=== PATIENT | female | born 1990 | race Caucasian/White ===

== ENCOUNTER 2022-03-18 17:11 | Outpatient (CLI) | payer BC, SELFPAY ==
[2022-03-18 17:31] LABS: Basophils Percent Auto 0.2 % (0.2-1.2); Eosinophils Absolute Auto 0.1 K/mm3 (0-0.3); Eosinophils Percent Auto 0.6 % (0-4.4); Hematocrit 35.9 % (37.0-47.0); Hemoglobin 11.7 g/dL (12.0-15.0); Immature Granulocyte Absolute 0.02 K/mm3 (0.00-0.031); Immature Granulocyte Percent A 0.2 % (0-0.5); Lymphocytes Absolute Auto 2.67 K/mm3 (0.9-3.2); Lymphocytes Percent Auto 24.5 % (18.3-44.2); Mean Corpuscular HGB Conc 32.6 g/dl (32-36); Mean Corpuscular Hemoglobin 30.2 pg (26-34); Mean Corpuscular Volume 92.5 fl (80-100); Monocytes Absolute Auto 0.7 K/mm3 (0.1-0.6); Monocytes Percent Auto 6.1 % (2.6-8.5); Neutrophils Absolute Auto 7.5 K/mm3 (1.3-6.7); Neutrophils Percent Auto 68.4 % (45.5-73.1); Platelet Count Result 236 k/mm3 (150-375); Red Blood Count 3.88 M/mm3 (4.2-5.4); Red Cell Distribution Width 13.3 % (11.5-14.5); White Blood Count 10.9 K/mm3 (4.5-10.0)
[2022-03-18 18:23] LABS: Hepatitis B Surface Antigen Negative (Negative)
[2022-03-18 18:25] LABS: HIV 1/2 Ab P24 Ag Result Negative (Negative)
[2022-03-20 17:06] LABS: Rapid Plasma Reagin Non-Reactive (NonReactive)
[2022-03-22 15:52] LABS: CMV IgG Antibody <0.60 U/mL (<0.60)
[2022-03-26 11:33] LABS: CF Result NEGATIVE (NEGATIVE); Ethnicity NG
[2022-03-27 08:36] LABS: SMA 2.0 RISK VARIANT NOT DETECTED
[2022-04-10 12:54] LABS: SMA Results Received Yes
== END 2022-03-18 17:12 | disposition home or self-care (01) ==
PROVIDERS: PCP Obstetrics & Gynecology; Visit Provider Student in an Organized Health Care Education/Training Program
DX: Z34.90 Encounter for supervision of normal pregnancy, unspecified, unspecified trimester (principal); Z3A.00 Weeks of gestation of pregnancy not specified
CPT/HCPCS: 36415; 81220; 81329; 84702; 85025; 86592; 86644; 86703; 86747; 86762; 86787; 86850; 86900; 86901; 87086; 87340; G0432

== ENCOUNTER 2022-06-18 07:17 | Outpatient (CLI) | payer BC, SELFPAY ==
[2022-06-18 09:31] LABS: Basophils Percent Auto 0.2 % (0.2-1.2); Eosinophils Absolute Auto 0.1 K/mm3 (0-0.3); Eosinophils Percent Auto 0.7 % (0-4.4); Hematocrit 32.2 % (37.0-47.0); Hemoglobin 10.3 g/dL (12.0-15.0); Immature Granulocyte Absolute 0.08 K/mm3 (0.00-0.031); Immature Granulocyte Percent A 0.7 % (0-0.5); Lymphocytes Absolute Auto 1.99 K/mm3 (0.9-3.2); Lymphocytes Percent Auto 17.4 % (18.3-44.2); Mean Corpuscular Volume 93.9 fl (80-100); Mean Platelet Volume 9.7 fl (7.4-10.4); Monocytes Absolute Auto 0.6 K/mm3 (0.1-0.6); Neutrophils Absolute Auto 8.7 K/mm3 (1.3-6.7); Platelet Count Result 298 k/mm3 (150-375); Red Blood Count 3.43 M/mm3 (4.2-5.4); Red Cell Distribution Width 14.6 % (11.5-14.5); White Blood Count 11.5 K/mm3 (4.5-10.0)
[2022-06-18 09:43] LABS: Glucose 1 Hour PP 50gm Dose 172 mg/dL
[2022-06-18 10:23] LABS: HIV 1/2 Ab P24 Ag Result Negative (Negative)
== END 2022-06-18 07:18 | disposition home or self-care (01) ==
LOC: ANHLAB 07:19
PROVIDERS: PCP Obstetrics & Gynecology; Visit Provider Obstetrics & Gynecology
DX: Z34.90 Encounter for supervision of normal pregnancy, unspecified, unspecified trimester (principal)
CPT/HCPCS: 36415; 82947; 85025; 86703; G0432

== ENCOUNTER 2022-07-05 19:53 | Outpatient (CLI) | payer BC, SELFPAY ==
[2022-07-05 20:15] VITALS: BP 112/69; PULSE 102
[2022-07-05 20:29] LABS: Basophils Percent Auto 0.2 % (0.2-1.2); Eosinophils Absolute Auto 0.1 K/mm3 (0-0.3); Eosinophils Percent Auto 0.6 % (0-4.4); Hematocrit 31.7 % (37.0-47.0); Hemoglobin 10.5 g/dL (12.0-15.0); Immature Granulocyte Absolute 0.04 K/mm3 (0.00-0.031); Immature Granulocyte Percent A 0.4 % (0-0.5); Lymphocytes Absolute Auto 2.38 K/mm3 (0.9-3.2); Lymphocytes Percent Auto 23.5 % (18.3-44.2); Mean Corpuscular HGB Conc 33.1 g/dl (32-36); Mean Corpuscular Hemoglobin 30.8 pg (26-34); Mean Platelet Volume 9.7 fl (7.4-10.4); Monocytes Absolute Auto 0.7 K/mm3 (0.1-0.6); Monocytes Percent Auto 7.3 % (2.6-8.5); Neutrophils Absolute Auto 6.9 K/mm3 (1.3-6.7); Platelet Count Result 289 k/mm3 (150-375); Red Blood Count 3.41 M/mm3 (4.2-5.4); Red Cell Distribution Width 14.2 % (11.5-14.5); White Blood Count 10.1 K/mm3 (4.5-10.0)
[2022-07-05 20:30] VITALS: BP 102/63; PULSE 92
[2022-07-05 20:31] LABS: Appearance Urine Clear (Clear); Bilirubin Urine Negative (Negative); Blood Urine Negative (Negative); Color Urine Yellow (Yellow); Glucose Urine UA Negative (Negative); Ketones Urine 1+ mg/dL (Negative); Leukocyte Esterase Ur Negative LEU/UL (NEGATIVE); Nitrate Urine Negative (Negative); Protein Urine Negative (Negative); Urobilinogen Urine 0.2 mg/dL (<2.0)
[2022-07-05 20:34] LABS: Total Protein Urine Random 18 mg/dL; Ur Ttl Prot Creatinine Ratio 1.38 mg/mg (0-0.20)
[2022-07-05 20:36] LABS: Add Urine Microscopic? YES; Amorphous Sediment Urine Few; Bacteria Urine 2+ /hpf; Mucus Urine Rare /lpf; RBC Urine 0-2 /hpf (0-2); Squamous Epithelial Cell Urine Few /hpf (Few)
[2022-07-05 20:42] LABS: Alanine Aminotransferase 23 U/L (6-35); Albumin Level 3.6 g/dL (3.5-5.1); Alkaline Phosphatase 65 U/L (38-126); Anion Gap 3 mmol/L (8-16); Aspartate Amino Transferase 30 U/L (14-36); Bilirubin,Total 0.4 mg/dL (0.2-1.3); Blood Urea Nitrogen 8 mg/dL (7-17); Calcium 9.2 mg/dL (8.4-10.2); Carbon Dioxide 25 mmol/L (22-30); Chloride 105 mmol/L (98-107); Estimated Glomerular Filt Rate > 60; Glucose 86 mg/dL (65-110); Potassium 3.3 mmol/L (3.4-5.0); Sodium 133 mmol/L (137-145); Uric Acid 3.2 mg/dL (2.5-7.5)
[2022-07-05 20:45] VITALS: BP 110/64; PULSE 94
--- NOTE | 2022-07-05 20:58 | PC.NURSE ---
Dr Chilel notified of adm c/o, informed of Blood sugars before and after eating, informed of lab results and and BP's. Order for 24 hour urine and may dc home and that patient may need to increase her carb intake a little.
[2022-07-05 21:10] VITALS: BP 112/69; PULSE 114
== END 2022-07-05 21:10 | disposition home or self-care (01) ==
LOC: ANHOBOP 20:00 → ANHOBPP 20:03
PROVIDERS: Visit Provider Obstetrics & Gynecology
DX: O13.9 Gestational [pregnancy-induced] hypertension without significant proteinuria, unspecified trimester (principal); Z3A.00 Weeks of gestation of pregnancy not specified
CPT/HCPCS: 36415; 59025; 80053; 81001; 82570; 84156; 84550; 85025; 87086; 99199

== ENCOUNTER 2022-07-06 21:10 | Outpatient (NON) | payer BC, SELFPAY ==
[2022-07-06 21:28] VITALS: BMI 26.6
[2022-07-06 22:07] LABS: Collection Time Urine 24 HOURS
[2022-07-06 22:15] LABS: Creatinine Urine 31.4 mg/dL; Patient Weight 154 Lbs
[2022-07-06 22:52] LABS: Total Protein Urine Random 22 mg/dL
[2022-07-06 23:03] LABS: Creatinine Clearance Urine 189.2 ml/min (75-125); Specific Gravity Ur 1.015; Total Protein Urine 24 Hr 770 mg/24hr (28-141); Total Volume 24 Hour Urine 3500 ml
== END 2022-07-06 21:11 | disposition home or self-care (01) ==
LOC: ANHOBOP 21:12
PROVIDERS: Visit Provider Obstetrics & Gynecology
DX: Z34.90 Encounter for supervision of normal pregnancy, unspecified, unspecified trimester (principal); Z3A.00 Weeks of gestation of pregnancy not specified
CPT/HCPCS: 81050; 82575; 84156

== ENCOUNTER 2022-08-06 22:02 | Emergency (ER) | payer BC, SELFPAY ==
--- NOTE | ~2022-08-06 | CT_ITS ---
Clinical Indication: Pulmonary embolus CT Scan of the Chest with Contrast: Technique: Contiguous sections were acquired throughout the chest after intravenous administration of 100 cc of Omnipaque 350. Dose reduction technique was used on this scan by utilizing automated expos ure control and iterative reconstruction technique. The dose-length product (DLP) was 142.49 mGy-cm. Findings: There is no evidence of any significant mediastinal, hilar or axillary lymphadenopathy. There is no f illing defect in the pulmonary arterial tree to suggest pulmonary embolus. There is no evidence of ao rtic dissection or aneurysm. There is no evidence of pleural or pericardial effusion. The lungs are clear. No pulmonary nodules or infiltrates are noted. Images through the upper abdomen reveal no abnormalities. Impression: No evidence of pulmonary embolus, aortic dissection, or aortic aneurysm. Clear lungs. Reviewed, dictated and finalized at [facility]. Impression: No evidence of pulmonary embolus, aortic dissection, or aortic aneurysm. Clear lungs.
--- NOTE | 2022-08-06 22:06 | ECG_ITS ---
Measurements Intervals [place] Rate: 128 P: 60 OK: 122 QRS: 60 QRSD: 100 T: 31 QT: 316 QTc: 462 Interpretive Statements SINUS TACHYCARDIA DELAYED PRECORDIAL R/S TRANSITION BORDERLINE ST-T WAVE ABNORMALITY- INFERIOR LEADS BASELINE ARTIFACT- I, II, III, AVR, AVL, AVF, V1-V6 ABNORMAL ECG NO PREVIOUS ECG AVAILABLE FOR COMPARISON Electronically Signed On 08-06-2022 22:37:47 CDT by Jose Miranda D.O.
[2022-08-06 22:07] VITALS: PULSE 102; RESP 21; O2SAT 97
[2022-08-06] MEDS: SODIUM CHLORIDE 0.9% IV 1,000 ML 999 ML IV CONT (22:19)
--- NOTE | 2022-08-06 22:31 | ED.GENADULT ---
HPI - General Adult General Chief complaint: Chest Pain Stated complaint: Chest pain 35 weeks Time Seen by Provider: 08/06/22 22:06 History of Present Illness HPI narrative: 32-year-old female that is approximately 35 weeks presented the emergency department for evaluation of left-sided chest pain, and abdominal cramping with what she suspects are Kirk Flores contractions. Patient states this morning she was having some abdominal discomfort and constipation. Patient did take some medication to help and did have a bowel movement. Patient states that she also had an episode of emesis. Patient did have follow-up with her maternal- medicine and they felt this is most likely due to the resolved constipation. Patient states approximately 1 hour prior to arrival she began having some left-sided chest pain and is having some sensation of contractions. Patient presented to OB and was directed to the emergency department for further work-up. Patient states she does have left-sided chest pain but has intermittent worsening of the pain. Patient states she does have some shortness of breath with the worsening of the pain. Patient does have a prior history of asthma. Related Data Home Medications Medication Instructions Recorded Confirmed folic acid 1 mg tablet 1 mg PO DAILY 12/10/21 07/28/22 doxylamine succinate 25 mg tablet 25 mg PO QHS PRN 02/17/22 07/28/22 (Unisom (doxylamine)) prenat.vits,álvaro,[id number]-[id number]-kdotg 1 tablet PO DAILY 03/18/22 07/28/22 vilazodone 20 mg tablet (Viibryd) 20 mg PO DAILY 03/18/22 07/28/22 ferrous sulfate 325 mg (65 mg 325 mg PO DAILY 07/01/22 07/28/22 iron) tablet Allergies Allergy/AdvReac Type Severity Reaction Status Date / Time codeine Allergy Intermediate hives Verified 08/06/22 22:03 Sulfa (Sulfonamide Allergy Intermediate unknown as Verified 08/06/22 22:03 Antibiotics) a baby Review of Systems Review of Systems: All systems reviewed & are unremarkable except as noted in HPI and below PMFSH Past Medical History Medical History ADHD Anxiety and depression Blood glucose abnormal Gestational diabetes Missed 07/2021 Prolactin deficiency Social History Social History Smoking status: Never smoker Substance use: never Substance use type: does not use Living arrangements: with family Occupation/Education: occupation Gender identity (if verbalized by the patient): Female Sexual Orientation (if Verbalized by the Patient): Straight or Heterosexual Exam Narrative: APPEARANCE: Well appearing, no pain, no distress, well-nourished. HEAD: normocephalic, atraumatic. EYES: PERRLA/EOMI, conjunctivae clear. NOSE: Normal no drainage NECK: Supple. No adenopathy, no masses. RESPIRATORY: Airway patent, respirations nonlabored. Clear to auscultation bilaterally, no rales, rhonchi, wheezing. CARDIOVASCULAR: Regular rate and rhythm without murmurs rubs or gallops. ABDOMINAL: Soft, nontender, gravid, normal bowel sounds MUSCULOSKELETAL: Moves all extremities. Strength/ROM intact, No edema, No calf tenderness. NEURO: Alert. Cranial nerves II through XII intact. Grossly intact SKIN: Warm, dry. Normal Color Course Course Emergency Course: 32-year-old female that is 35 weeks presenting for evaluation of left-sided chest pain and abdominal cramping. Patient is intermittently tachycardic due to discomfort. Patient is being ordered IV fluids for rehydration, patient took Tylenol just prior to arrival. Patient will be treated with 50 mg of IV fentanyl. With the patient's left-sided chest pain and tachycardia CTA was ordered to rule out pulmonary embolism. Patient and family were updated on the risk and benefits of the CT scan. Patient was comfortable with the plan for proceeding with a CT scan. Due to patient reporting that she was having [place]
[2022-08-06] MEDS: fentaNYL CITRATE INJ (*CRX) 100 MCG/2 ML VIAL 50 MCG IV PUSH (22:38)
[2022-08-06 22:42] VITALS: BP 125/81; PULSE 102; RESP 22; O2SAT 99
[2022-08-06 22:51] LABS: Alanine Aminotransferase 28 U/L (6-35); Albumin Level 3.5 g/dL (3.5-5.1); Alkaline Phosphatase 120 U/L (38-126); Anion Gap 9 mmol/L (8-16); Aspartate Amino Transferase 37 U/L (14-36); Bilirubin,Total 0.8 mg/dL (0.2-1.3); Blood Urea Nitrogen 12 mg/dL (7-17); Calcium 9.2 mg/dL (8.4-10.2); Carbon Dioxide 22 mmol/L (22-30); Chloride 100 mmol/L (98-107); Estimated CRCL calculation 129 ml/min; Estimated Glomerular Filt Rate > 60; Glucose 106 mg/dL (65-110); Potassium 3.7 mmol/L (3.4-5.0); Sodium 131 mmol/L (137-145)
[2022-08-06 23:05] LABS: Basophils Percent Auto 0.2 % (0.2-1.2); Hematocrit 37.7 % (37.0-47.0); Hemoglobin 12.4 g/dL (12.0-15.0); Immature Granulocyte Percent A 0.8 % (0-0.5); Lymphocytes Absolute Auto 0.88 K/mm3 (0.9-3.2); Lymphocytes Percent Auto 6.8 % (18.3-44.2); Mean Corpuscular HGB Conc 32.9 g/dl (32-36); Mean Corpuscular Hemoglobin 30.6 pg (26-34); Mean Corpuscular Volume 93.1 fl (80-100); Mean Platelet Volume 10.2 fl (7.4-10.4); Monocytes Absolute Auto 0.7 K/mm3 (0.1-0.6); Neutrophils Absolute Auto 11.4 K/mm3 (1.3-6.7); Neutrophils Percent Auto 87.2 % (45.5-73.1); Platelet Count Result 290 k/mm3 (150-375); Red Blood Count 4.05 M/mm3 (4.2-5.4); Red Cell Distribution Width 14.6 % (11.5-14.5)
[2022-08-06 23:25] VITALS: BP 113/71; PULSE 100
--- NOTE | 2022-08-07 00:01 | ECG_ITS ---
Measurements Intervals [place] Rate: 87 P: 10 [place]: 134 QRS: 17 QRSD: 103 T: 11 QT: 332 QTc: 399 Interpretive Statements SINUS RHYTHM DELAYED PRECORDIAL R/S TRANSITION BORDERLINE T WAVE ABNORMALITY- INFERIOR LEADS BORDERLINE ECG COMPARED TO ECG 08/06/2022 22:12:27 SINUS RHYTHM NOW PRESENT Electronically Signed On 08-07-2022 7:09:09 CDT by Jose Miranda D.O.
[2022-08-07 01:20] VITALS: BP 98/63; PULSE 95; RESP 17; O2SAT 96
== END 2022-08-07 01:21 | disposition home or self-care (01) ==
PROVIDERS: Emergency Provider Emergency Medicine
DX: O26.893 Other specified pregnancy related conditions, third trimester (principal); R07.9 Chest pain, unspecified; O99.513 Diseases of the respiratory system complicating pregnancy, third trimester; J45.909 Unspecified asthma, uncomplicated; O99.343 Other mental disorders complicating pregnancy, third trimester; F90.9 Attention-deficit hyperactivity disorder, unspecified type; F41.9 Anxiety disorder, unspecified; F32.A Depression, unspecified; Z86.32 Personal history of gestational diabetes; O99.891 Other specified diseases and conditions complicating pregnancy; R00.0 Tachycardia, unspecified; R94.31 Abnormal electrocardiogram [ECG] [EKG]; Z3A.35 35 weeks gestation of pregnancy
CPT/HCPCS: 36415; 71275; 80053; 85025; 93005; 96361; 96374; 99284; J3010; J7030; Q9967

== ENCOUNTER 2022-08-13 19:02 | Observation (INO) | payer OTHER, SELFPAY ==
[2022-08-13] MEDS: TERBUTALINE SULFATE 1 MG/ML VIAL 0.25 MG SUB-Q (19:49)
[2022-08-13 20:30] VITALS: BMI 27.5
--- NOTE | 2022-08-13 20:31 | OBADM ---
This patient, Shyanne Fisher, admitted to the OB room Labor/Delivery/Recovery 105 for observation. Patient/family oriented to hospital policies and general routines including ID bracelet, bed and alarms, visiting hours, pain management, procedures, bathroom and other care routines, personal items, smoking policy, room service/diet, and visiting hours. Patient/Family are encouraged to report perceived risks to care and to ask questions if they do not understand what they are told or what they should do.
--- NOTE | 2022-08-14 11:38 | PM.OBTRLD ---
OB - Triage/Final Diagnosis Visit Information Date of evaluation: 08/13/22 Reason for evaluation: threatened labor Comments/Additional reasons for admission: I have assessed the risk for this patient, Shyanne Fisher, and determined that she would benefit from observation care.
== END 2022-08-13 21:12 | disposition home or self-care (01) ==
LOC: ANHNUR1 19:34 → ANHLDR 19:40
PROVIDERS: Admitting Provider Student in an Organized Health Care Education/Training Program; Visit Provider Student in an Organized Health Care Education/Training Program
DX: O47.9 False labor, unspecified (principal); Z3A.00 Weeks of gestation of pregnancy not specified
CPT/HCPCS: 96372; G0378; G0379; J3105

== ENCOUNTER 2022-08-25 11:17 | Inpatient (IN) | payer OTHER, SELFPAY ==
[2022-08-25] VITALS (107 sets, daily range): BP systolic 80–142; BP diastolic 46–98; PULSE 74–126; RESP 16–20; TEMP 36.3–37; O2SAT 92–100; BMI 27.9
[2022-08-25] MEDS: LACTATED RINGERS 1,000 ML 125 ML IV CONT (13:40)
[2022-08-25] MEDS: fentaNYL CITRATE INJ (*CRX) 100 MCG/2 ML VIAL IV PUSH (13:40)
[2022-08-25 13:55] LABS: Glucose Point of Care 95 mg/dl (65-105)
[2022-08-25 14:02] LABS: Basophils Percent Auto 0.2 % (0.2-1.2); Eosinophils Percent Auto 0.1 % (0-4.4); Hematocrit 37.5 % (37.0-47.0); Hemoglobin 12.8 g/dL (12.0-15.0); Immature Granulocyte Absolute 0.09 K/mm3 (0.00-0.031); Immature Granulocyte Percent A 0.7 % (0-0.5); Lymphocytes Percent Auto 13.3 % (18.3-44.2); Mean Corpuscular HGB Conc 34.1 g/dl (32-36); Mean Corpuscular Hemoglobin 31.1 pg (26-34); Mean Corpuscular Volume 91.2 fl (80-100); Mean Platelet Volume 10.1 fl (7.4-10.4); Monocytes Absolute Auto 0.9 K/mm3 (0.1-0.6); Monocytes Percent Auto 6.7 % (2.6-8.5); Neutrophils Absolute Auto 10.7 K/mm3 (1.3-6.7); Platelet Count Result 323 k/mm3 (150-375); Red Blood Count 4.11 M/mm3 (4.2-5.4); Red Cell Distribution Width 14.6 % (11.5-14.5); White Blood Count 13.5 K/mm3 (4.5-10.0)
--- NOTE | 2022-08-25 14:17 | WPDANESEPP ---
Anes - Eval Pre Procedure Procedure: Labor epidural Date/Time: 08/25/22 14:17 Surgeon: Asher Preop Diagnosis: Abd pain with contractions Pre Op Diagnosis: Contractions Patient Data Age: 32 Gender: F Height: Weight: Last Vital Signs Pulse 80 08/25/22 14:00 BP 130/77 08/25/22 14:00 Allergies Allergy/AdvReac Type Severity Reaction Status Date / Time codeine Allergy Intermediate hives Verified 08/19/22 08:05 Sulfa (Sulfonamide Allergy Intermediate unknown as Verified 08/19/22 08:05 Antibiotics) a baby Home Medications Medication Instructions Recorded Confirmed Type folic acid 1 mg tablet 1 mg PO DAILY 12/10/21 08/12/22 History doxylamine succinate 25 mg tablet 25 mg PO QHS PRN 02/17/22 08/12/22 History (Unisom (doxylamine)) prenat.vits,álvaro,[id number]-[id number]-blpbz 1 tablet PO DAILY 03/18/22 08/12/22 History vilazodone 20 mg tablet (Viibryd) 20 mg PO DAILY 03/18/22 08/12/22 History famotidine 20 mg tablet (Pepcid) 20 mg PO DAILY #90 tabs 04/15/22 08/12/22 Rx ferrous sulfate 325 mg (65 mg 325 mg PO DAILY 07/01/22 08/12/22 History iron) tablet ascorbate calcium (vitamin C) 500 500 mg PO DAILY 08/12/22 08/12/22 History mg tablet Laboratory Tests 08/25/22 08/25/22 08/25/22 13:43 13:48 13:48 WBC 13.5 K/mm3 H K/mm3 (4.5-10.0) RBC 4.11 M/mm3 L M/mm3 (4.2-5.4) Hgb 12.8 g/dL g/dL (12.0-15.0) Hct 37.5 % % (37.0-47.0) MCV 91.2 fl fl (80-100) MCH 31.1 pg pg (26-34) MCHC 34.1 g/dl g/dl (32-36) RDW 14.6 % H % (11.5-14.5) Plt Count 323 k/mm3 k/mm3 (150-375) MPV 10.1 fl fl (7.4-10.4) Immature Gran % (Auto) 0.7 % H % (0-0.5) Neut % (Auto) 79.0 % H % (45.5-73.1) Lymph % (Auto) 13.3 % L % (18.3-44.2) [place] % (Auto) 6.7 % % (2.6-8.5) Eos % (Auto) 0.1 % % (0-4.4) Baso % (Auto) 0.2 % % (0.2-1.2) Lymph # (Auto) 1.80 K/mm3 K/mm3 (0.9-3.2) [place] # (Auto) 0.9 K/mm3 H K/mm3 (0.1-0.6) Eos # (Auto) 0.0 K/mm3 K/mm3 (0-0.3) Baso # (Auto) 0.0 K/mm3 K/mm3 (0.0-0.1) Abs Immat Gran (auto) 0.09 K/mm3 H K/mm3 (0.00-0.031) Absolute Neuts (auto) 10.7 K/mm3 H K/mm3 (1.3-6.7) Absolute Nucleated RBC 0.0 K/mm3 K/mm3 (0.0-0.012) Nucleated RBC % 0.0 % % (0.0-0.2) POC Capillary Glucose 95 mg/dl mg/dl (65-105) RPR Pending Patient hx anesthesia problems: none Family hx anesthesia problems: none Results Review: All pre-operative results and documents have been reviewed as part of the pre-operative evaluation. [facility] Past Medical History Medical History ADHD Anxiety and depression Blood glucose abnormal Gestational diabetes Missed 07/2021 and not yet delivered Prolactin deficiency Family History Family History Father Hypertension Testicle cancer Skin cancer Mother Hypertension Skin cancer Sibling Skin cancer Club foot of both lower extremities Grandparent Bipolar 1 disorder, manic, mild Alzheimer disease Social History Social History Smoking status: Never smoker Substance use: never Substance use type: does not use Living arrangements: with family Occupation/Education: occupation Gender identity (if verbalized by the patient): Female Sexual Orientation (if Verbalized by the Patient): Straight or Heterosexual Spiritual care concerns: No Exam Day of Procedure 08/25/22 14:17 Patient weight: overweight
--- NOTE | 2022-08-25 15:15 | LDADM ---
This patient, Shyanne Fisher, was admitted to Labor/Delivery/Recovery 103 on 08/25/22 at 11:17. Plans for labor, pain management and were discussed with patient. Patient/family oriented to hospital policies and general routines including ID bracelet, bed and alarms, visiting hours, pain management, procedures, bathroom and other care routines, personal items, smoking policy, room service/diet and guest tray routines, security routines, and visiting hours. Patient/Family are encouraged to report perceived risks to care and to ask questions if they do not understand what they are told or what they should do. See [facility]BI[facility] for further documentation.
[2022-08-25 16:50] LABS: Glucose Point of Care 80 mg/dl (65-105)
[2022-08-25] MEDS: OXYTOCIN 30 UNITS/NS 500 ML 30 UNITS/500 ML BAG 999 UNITS IV CONT (17:54)
--- NOTE | 2022-08-25 18:08 | WPDHPUPDATE1 ---
History and Physical Update Update Date/Time: 08/25/22 18:08 History and Physical has been reviewed, including an updated exam of the patient. There are NO changes in the patient's condition. Risks, benefits, and alternatives have been discussed and questions answered. Patient agrees to proceed with procedure.
--- NOTE | 2022-08-25 18:09 | WPDOBADMIT ---
Obstetrics - Admit Note Admission Note: record reviewed. No pertinent additions to the history and/or any subsequent changes in the physical findings that are not consistent with the expected course of the were found. Additions to the history and/or subsequent changes in the physical findings follow. None.
--- NOTE | 2022-08-25 18:09 | PM.OBPRVD ---
OB - Delivery Note Procedure Events: Gestational Diabetes Induction method: None Delivery augmentation: Rupture of Membranes Delivery monitor: Internal FHT and Internal Uterine Route of delivery: Episiotomy description: None Laceration Description: Vaginal and Superficial Delivery repair: chromic Specimen: Yes Quantitative Blood Loss (ml): 200 Anesthesia type: Epidural Complications: None Narrative: patient prepped and draped in usual manner for vaginal delivery. Maternal expulsive efforts readily delivered vertex over intact perineum. Rest of baby was delivered without difficulty cord clamped and cut and placenta delivered spontaneously. Uterus was well contracted with minimal bleeding. Periurethral laceration was noted though not bleeding. Vaginal laceration was noted in the right lower vaginal area which was approximated using 2-0 chromic in a running interlocking manner with good approximation hemostasis noted. At this point the procedure was considered terminated immediate postoperative condition of mother and baby were both excellent. Baby Weeks of gestation at delivery: 37 gender: Male presentation: vertex Placenta delivery description: Spontaneous Cord Vessel Description: 3 Vessels score one minute: 9 score five minutes: 9 AMG Delivery Billing Delivery Delivery: Delivery Charge
[2022-08-25] MEDS: OXYTOCIN 30 UNITS/NS 500 ML 30 UNITS/500 ML BAG 125 UNITS IV CONT (18:31)
--- NOTE | 2022-08-25 20:31 | PC.NURSE ---
Patient transferred to post room #279 via ( W/C ). Support person(Vazquez) present. Oriented to unit, room, information board, rooming in, admission packet and security measures. Patient verbalizes understanding.
[2022-08-25] MEDS: IBUPROFEN 600 MG TABLET PO (22:30)
[2022-08-26 05:38] LABS: Hematocrit 37.1 % (37.0-47.0); Hemoglobin 12.3 g/dL (12.0-15.0)
[2022-08-26 05:41] VITALS: BP 113/75; PULSE 72; RESP 16; TEMP 37.1; O2SAT 97
[2022-08-26] MEDS: IBUPROFEN 600 MG TABLET PO ×2 (05:49→16:33)
[2022-08-26 07:19] LABS: Rapid Plasma Reagin Non-Reactive (NonReactive)
[2022-08-26 07:53] VITALS: BP 108/64; PULSE 71; RESP 18; TEMP 36.8; O2SAT 94
[2022-08-26] MEDS: DOCUSATE SODIUM 100 MG CAPSULE PO ×2 (08:22→21:02)
[2022-08-26] MEDS: MULTIVIT/MIN/PREN/FOL AC/IRON TABLET 1 TAB PO (08:22)
--- NOTE | 2022-08-26 08:35 | PC.NURSE ---
On 08/26/22, the student, Omayra Ferrell, provided care and completed [employer] documentation on this patient. I have reviewed the student's documentation and agree with the findings.
--- NOTE | 2022-08-26 09:58 | WPDANLDPN2 ---
Anes-Prog Note L&D Date/Time: 08/26/22 09:58 Comfortable throughout: labor and delivery Neuraxial method: epidural Epidural/Spinal procedure site: clean & non-tender Neuro status: Neuro function grossly intact. Cardiovascular status: normal Respiratory status: normal Airway patency: baseline Mental status: baseline Post-Op hydration status: normal Vital Signs: Last Vital Signs Temp 36.8 C 08/26/22 07:53 Pulse 71 08/26/22 07:53 Resp 18 08/26/22 07:53 BP 108/64 08/26/22 07:53 Pulse Ox 94 08/26/22 07:53 O2 Del Method Room Air 08/25/22 22:05 Pain score (VAS): 2 I/O: Intake & Output 08/25/22 08/26/22 08/26/22 23:59 07:59 15:59 Intake Total 1500 Output Total 166 Balance 1334 Patient feedback: Patient satisfied with anesthetic care.
[2022-08-26] MEDS: FAMOTIDINE 20 MG TABLET PO (11:18)
[2022-08-26] MEDS: ACETAMINOPHEN 325 MG TABLET 650 MG PO ×2 (11:18→21:00)
[2022-08-26 12:37] VITALS: BP 108/71; PULSE 85; RESP 16; TEMP 37.1; O2SAT 97
--- NOTE | 2022-08-26 15:30 | PC.NURSE ---
[id number] Introductions were made, then consulted with patient to assess needs related to . Mother led the conversation with her?plans to feed?her infant and the?experience so far. Resources provided for inpatient and outpatient services with the feeding sheet, mom/baby guide and name written on the white board. Mother voiced understanding of information and requested assistance. Mother works well with her with encouragement and education. Encouraged understanding of the benefits of skin to skin (demonstrating unwrapping infant and placing upright on her chest), stimulating with massage touch, changing positions to encourage wakefulness, how to watch for early feeding cues, responsive feeding, feeding on demand (aiming for 8-12 times in 24 hours, about every 2-3 hours), milk production, building/maintaining a milk supply, duration of feeding, signs of adequate intake/output and how to record on the feeding sheet. Reviewed positioning and ear, shoulder, hip alignment, supporting the breast to facilitate a deep latch, asymmetrical latch (off-center), leading with the chin with a big, open, wide gape and body close to mother. Infant latched optimally to the right breast in cross cradle position. Education given to mother of how to visualize suck/swallow ratios and listen for drinking at the breast. Infant was able to maintain latch without discomfort to mother. Nipple care reviewed with optimal latch and good positioning. Reviewed good handwashing when or touching the breast/nipples to prevent infection. Resources used to facilitate learning were used with the tool, mom and baby guide. Mother voiced understanding of skin to skin, stimulating with massage touch, responsive feedings, hand expressed colostrum, talking to infant to encourage if it has been 2 -2.5 hours since the start of the last , to call if does not latch, or if there is discomfort with . Mother voiced understanding of information, demonstrated learning and will call if there is a request for assistance. Reported to the primary RN.
[2022-08-26 16:40] VITALS: BP 101/58; PULSE 75; RESP 16; TEMP 36.9; O2SAT 100
--- NOTE | 2022-08-26 17:22 | PHAR ---
HOME MEDICATION VERIFIED BY PHARMACY VILAZODONE 20MG TABLETS TAKE 1 TABLET DAILY WITH FOOD RX#[id number]
[2022-08-26 20:44] VITALS: BP 123/78; PULSE 67; RESP 16; TEMP 36.9; O2SAT 97
[2022-08-27] MEDS: IBUPROFEN 600 MG TABLET PO (04:35)
--- NOTE | 2022-08-27 07:16 | PM.OBDSVD ---
DS: Admitting Diagnosis Discharge Date 08/27/2022 Admitting Diagnosis DS: Discharge Diagnosis Discharge Diagnosis (1) , delivered: Code(s): O80 - Encounter for full-term uncomplicated delivery Status: Acute OB - DS: Summary OB Procedures : None OB Procedures Intrapartum: Spontaneous Vag Delivery OB Procedures: : None Time Spent with Patient Time attestation: Total time spent providing and/or coordinating discharge services: DS: Data Data Completed and Pending Pending studies at discharge: Pending at discharge 08/25/22 18:41 Surgical [PTH] Routine Labs on day of discharge: Labs from last 24 hours 08/25/22 13:48 RPR Non-reactive Discharge Plan Discharge Discharging Clinician: Steven Sterling Patient Disposition: Home, Self-Care Activity: as tolerated Diet: as tolerated Patient Instructions: Antibiotic Form Stand Alone Forms: General Discharge Information Follow-up/Referrals: Steven Sterling MD [Physician] - 3 Weeks Discharge Medications: New ibuprofen 600 mg Tablet 600 mg PO Q6H PRN (Reason: Cramping) Qty: 30 0RF Continued famotidine [Pepcid] 20 mg tablet 20 mg PO DAILY Qty: 90 3RF prenat.vits,álvaro,qvq-lpub-hssad Tablet 1 tablet PO DAILY vilazodone [Viibryd] 20 mg tablet 20 mg PO DAILY Rx Instructions: must administer with a meal/food ferrous sulfate 325 mg (65 mg iron) tablet 325 mg PO DAILY ascorbate calcium (vitamin C) 500 mg tablet 500 mg PO DAILY Discontinued Unisom (doxylamine) 25 mg tablet 25 mg PO QHS folic acid 1 mg tablet 1 mg PO DAILY Date of admission: 08/25/22 11:17 Primary Care Provider: UNKNOWN,DOCTOR Admitting Provider: Steven Sterling Attending physician on admission: Steven Sterling Condition: Stable
[2022-08-27 08:00] VITALS: BP 120/78; PULSE 64; RESP 16; TEMP 37; O2SAT 98
[2022-08-27] MEDS: DOCUSATE SODIUM 100 MG CAPSULE PO (08:57)
[2022-08-27] MEDS: FAMOTIDINE 20 MG TABLET PO (08:57)
[2022-08-27] MEDS: MULTIVIT/MIN/PREN/FOL AC/IRON TABLET 1 TAB PO (08:57)
--- NOTE | 2022-08-27 10:00 | PC.NURSE ---
Patient viewed the discharge video Mother & Baby Care, The First Two Weeks . Patient was given the opportunity and encouraged to ask questions. Patient verbalized understanding of information shared and has been given the mother/baby guide for home reference.
--- NOTE | 2022-08-27 14:22 | PC.NURSE ---
[id number] Purposefully rounded to assess needs. Mother is in the shower. Father of baby states she has a few questions. RN requested them to call when they are prepared to consult. [id number] Purposefully rounded to assess needs due to not being notified of patient calling for assistance. Mother led the conversation with her experience so far. Mother is more confident in her ability to independently latch infant optimally without discomfort. Reviewed positioning and encouraging a latch with a big, open, wide gape with a deep effective latch watching for swallowing. Detaching if there's pain and that initial soreness that subsides is okay. Reminded parents to use good handwashing technique to prevent infection. Mother is feeding appropriately for growth of and understands stimulating to eat if needed. Infant has had appropriate feedings in the last 24 hours meets the outcomes for weight, output and jaundice at this time. Mother states she is confident to continue effectively breastfeed her at home, when to call for assistance and denies any additional assistance or education at this time. Reinforced understanding of milk production, transition of milk, signs of adequate intake, transition of stool, prevention/relief of engorgement, responsive watching for feeding cues, the different methods of stimulating to breastfeed 2-3 hours after the start of the last feeding, community resources, medication information reviewed per [facility] and when to call a provider using the resource of the mom and baby guide. Parents voiced understanding of the education shared. Reported to the primary RN.
[2022-08-28 08:45] VITALS: BP 112/72; PULSE 81; RESP 20; TEMP 37.4; O2SAT 98
== END 2022-08-27 11:51 | disposition home or self-care (01) | DRG 807 ==
LOC: ANHLDR 13:19 → ANHOB2 20:34
PROVIDERS: Admitting Provider Obstetrics & Gynecology; Visit Provider Obstetrics & Gynecology
DX: O24.420 Gestational diabetes mellitus in childbirth, diet controlled (principal); Z37.0 Single live birth; O71.82 Other specified trauma to perineum and vulva; Z3A.37 37 weeks gestation of pregnancy
CPT/HCPCS: 36415; 82948; 85014; 85018; 85025; 86592; 86850; 86900; 86901; 88307; A9270; J2590; J2795; J3010; J7120

== ENCOUNTER 2022-10-07 09:57 | Outpatient (RCR) | payer OTHER, SELFPAY ==
--- NOTE | 2022-10-07 12:00 | PC.NURSE ---
In- [id number] Out- 1120 Reason for visit: latch issues and flange/pumping questions History: Mother's labor was augmented on 08/25 with AROM. She delivered uncomplicated with an epidural a male . She exclusively breastfed when in the hospital. Infant History: Vaginal on 08/25 with no complications charted. APGARS 9/9. Infant has a lower frenulum that is tight, however, he was able to effectively breastfeed in the hospital. Observations: is demonstrating late feeding cues so he is quickly latched to the right breast without a weight. There is good rocking jaw motion with appropriate swallowing and pausing. Mother denies pain with the latch. breastfed for 20 minutes, then self-detached. Mother's right nipple was slightly flattened on the underside where 's tongue was positioned. Recommended rotating positioning from cross-cradle to football as she continues to work on getting to latch and remain latched deeply with a mouthful. Infant was latched to the affected left breast and occasionally the rocking jaw motion was changed to a chomping motion. When made a popping/clicking noise it was visualized that mother could improve the latch holding infant closer with the chin buried into the breast. On a rare occasion infant Merrill would attempt to pull back to breast feed a bit shallow and mother was encouraged to gently encouraged infant with positioning to keep the deep latch as her nipples in diameter measure 24mm. Suck swallow ratios were under 4:1 with burst of 1:1 and 1:2. Mother denies pain with effective latching. Mother confirms that it is possible that her infant did not have more than the nipple in his mouth while in the early days at home as it was reflected in the weight loss. Reviewed the pump that mother has been using over the last two weeks. It is an Enjoye that I have not seen before and it appears vintage. The pump flanges do not have measurements on them and they measure 24mm. Assessment of mother's nipples are 27mm. Mother was discouraged from using this pump and states she has a used Spectra from her sister that was barely used as she exclusively breastfed. Reviewed the risks of used pumps, cleaning, sterilizing, and care of pump. Reviewed with mother there should not be pain with pumping and to call with any concerns. weight: 6-12.6 (3080g) Lowest weight: 2735g follow up appt (11.20% loss at this appt) Mother states she was instructed to breastfeed, then pump and feed infant the pumped milk as well to get back to weight. Last weight: 6-15 at 1 month appt Pre-feed weight: measured left breastfeed only 8-9.7 (3904g) Post-feed weight: 8-14.3 (4035g) Plan of Care: Mother will be making a call to Dr. Spivey concerning the signs of mastitis on the left breast. Mother is going to discontinue using the used Enjoye pump with 24mm flanges. Mother will begin using a Spectra pump that has been used for one prior but not hers. Discussed the risks of second-hand pump use. Reviewed disinfecting with scrubbing with soap/water and boiling for sterilization. Mother was measured and instructed to use 27mm flanges. Mother was encouraged to breastfeed frequently and to get past mastitis, then follow up for preparing to go back to work. Follow up plans: RN will do a phone follow up call tomorrow to assess any further concerns. Mother was given resources on how, when and to where to reach out for concerns or questions to , OB, and ICP.
== END 2022-10-07 09:58 | disposition home or self-care (01) ==
LOC: ANHOBOP 09:57
PROVIDERS: Visit Provider Pediatrics
DX: Z39.1 Encounter for care and examination of lactating mother (principal)
CPT/HCPCS: 99213; G0463

== ENCOUNTER 2022-10-22 14:16 | Outpatient (RCR) | payer OTHER, SELFPAY ==
--- NOTE | 2022-10-22 16:05 | PC.NURSE ---
In- 1416 Baby elio Merrill Out- 1530 Reason for visit: Latch issues and pumping flange fit History: Mother's labor was augmented on 08/25 with AROM. She delivered uncomplicated with an epidural a male . She exclusively breastfed in the hospital. Medications: Vilazodone which is category C. She has discussed with her doctor about changing the medication to something that has more research, however; it is recommended she remain on current medication. According to ncbi.nlm.gov/books/VPO148246 an alternate drug may be preferred related to no published information on medication with . Mother also visits a counselor once a week and is managing her mental health well today, however; it has been frustrating lately with a recent bout of mastitis and fussing. The mastitis required antibiotics. History: Vaginal on 08/25 with no complications charted. APGARS 9/9. has a lower frenulum that is tight, however, he was able to effectively breastfeed in the hospital. was able to latch effectively last visit with encouragement and assertiveness to latch and maintain a deep latch while . Mother has been , then pumping and bottle feeding afterwards. Some of the infants stools have been green with some mucous, yet lately has been going back to more yellow. Observations: Infant will latch deeply and breastfeed with a rare swallow. Very little areola is able to enter the mouth with a deep latch related to the 2 cm nipple length and 27mm diameter of the nipple. Infant pulls off and attempts to latch only to the nipple. When is encouraged to deeply latch, then become fussy. After multiple attempts with football and cross cradle positioning, mother pumps her breast and bottle feeds her infant breast milk. Mother uses chin support to assist infant with bottle feeding to reduce air intake. weight: 6-12.6 (3080g) Lowest weight: 2735g follow up appt (11.20% loss at this appt) Mother states she was instructed to breastfeed, then pump and feed infant the pumped milk as well to get back to weight. Last weight: 8-14.3 (4035g) at the last consult appt. Pre-feed weight: 4313g (9-8.1) Post-feed weight: 4330 (9-8.7) Plan of Care: It was suggested to follow up with her ICP for less than expected weight gain in 15 days, yet may be appropriate according to some growth charts and infant's age. She has an appointment with Dr. Adams's office on 11/04/22. It was suggested to collaborate with a pediatric OT for further evaluation for 's disorganized sucking pattern. Mother is managing her milk production post mastitis and is pumping enough breast milk for growth of her infant. Follow up plans: Mother voiced understanding of when to follow up with the ICP, , and possibly a Pediatric OT.
== END 2023-01-20 23:59 | disposition home or self-care (01) ==
LOC: ANHOBOP 14:16
PROVIDERS: Visit Provider Pediatrics
DX: Z39.1 Encounter for care and examination of lactating mother (principal)
CPT/HCPCS: 99212; G0463

== ENCOUNTER 2024-09-06 09:22 | Outpatient (CLI) | payer BC, SELFPAY ==
--- OUTSIDE RECORDS SUMMARY | 2024-09-06 10:03 | XMS_ITS | Clinical Summary ---
Author Organization [facility] Address [address] [place] [address] Care Team Providers Care Thiokol Operator Name Role Phone Laura Patel SIZER MACHINE Primary Care Provider [phone] Family History Medical History Relation Comments No Known Problems Mother No Known Problems Sister Relation Status Comments Mother Alive Sister Alive Social History Tobacco Use Types Packs/Day Years Used Date Smoking Tobacco: Never Assessed Comments Unknown Sex and Gender Information Value Date Recorded Sex Assigned at Not on file Legal Sex Female 10:20 AM CDT Gender Identity Not on file Sexual Orientation Not on file Plan of Treatment Health Maintenance Due Date Last Done Comments Cervical Cancer Screening Pa p Smear (Age 30 to 64) Every 3 Years 1988 Annual Physical 07/29/1991 Hepatitis C 2006 DTaP, Tdap and Td Vaccines ( 1 - Tdap) 07/29/2007 12/31/1992 Hepatitis B Vaccines (1 of 3 - 19+ 3-dose series) 07/29/2007 Cervical Cancer Screening Pa p with HPV Testing (Age 30 to 64) Every 5 Years 2018 Cervical Cancer Screening with HPV 2018 COVID-19 Vaccine ( - 2023-2 5 season) 2024 07/18/2020 HPV Vaccines Aged Out No longer eligi ble based on patient's age to complete this topic Meningococcal B Vaccine Aged Out No l onger eligible based on patient's age to complete this topic Meningococcal Vaccine Aged Out No antony meño eligible based on patient's age to complete this topic Pneumococcal Vaccine: Pediat rics (0 to 5 Years) and At-Risk Patients (6 to 49 Years) Aged Out No longer eligi ble based on patient's age to complete this topic RSV Immunizations Under 20 Months Aged Out No longer eligible based on patient's age to complete this topic Insurance [facility] Care Teams Thiokol Operator Relationship Specialty Start Date End Date Laura Patel FNP [address] [place] [address] [address] [place] [address] PCP - General NURSE PRACTITIONER 11/27/19
--- OUTSIDE RECORDS SUMMARY | 2024-09-06 10:04 | XMS_ITS | Patient Health Record ---
Author Organization [facility] Address [address] [place] [address] Care Team Providers Care Optical Systems Engineer Name Role Phone Zenaida Mandel Primary Care Provider Allergies Allergen (clinical drug ingredient) Drug/Non Drug Allergy documented on EMR Reaction Allergy Type Onset Date Status Sulfacet-R Unknown Drug Allergy Active codeine Codeine Unknown Drug Allergy Active Reason For Referral No Information Medications Medication SIG (Take, Route, Fr equency, Duration) Notes Start Date End Date Status Folic Acid 1 MG 1 tablet Orally Once a day for 30 day(s) Active risperiDONE 0.5 MG 1 tablet in the even ing Orally Once a day Active traZODone HCl 100 MG 1 tablet at bedtime Orally Once a day for 30 day(s) Active Viibryd 10 MG 1 tablet with food O rally Once a day for 30 day(s) Active Adderall 10 MG 1 tablet Orally Twice a day Active Social History Tobacco Use: Social History Observation Description Date Details (start date - stop date) Never Smoker NA - NA Dont use, Tobacco Use/Smoking Question Answer Notes Are you a nonsmoker Problems Problem Type SNOMED Code ICD Code Onset Dates Problem Status W/U Status Risk Notes Problem Anxiety (71889705) Anxiety (F41.9) Active confirmed Problem Attention deficit hyperactivity disorder (587885437) ADHD (attention deficit hyperactivity disorder) (F90.9) Active confirmed Plan Of Treatment No Information Insurance Providers Payer Name Payer Address Payer Phone Subscriber Number Group Number Insured Name Patient Relationship to Insured Coverage Start Date Coverage End Date [facility] [address] [place] [address] [id number] Shyanne Fisher Self - patient is the insured 1 Medical (General) History Surgical History Surgery Date(Month/Year) tonsillectomy wisdom tooth removed Hospitalization History Reason Date(Month/Year) mental health 2017
--- OUTSIDE RECORDS SUMMARY | 2024-09-06 10:04 | XMS_ITS | Clinical Summary ---
Author Organization [facility] Address [address] [address] Care Team Providers Care In Home Sales Consultant Name Role Phone Jorge Laura Oconnor APRN-HEALTH AND SOCIAL CARE TEACHER Primary Care Provider Source Comments [facility],non-owned Affiliates and Associated Physician Practices is amultiple site organization consisting of ambulatory clinics and hospital sitesin [place], [place], [place] and [place]. This disclosure is being madepursuant to the Care Everywhere program and may not contain all information available regarding this patient. Last updated 18.[facility] Allergies Active Allergy Reactions Criticality Noted Date Comments Codeine Rash Low 12/25/2012 Sulfa Drugs Rash Low 12/25/2012 Medications * This document contains information received from the source organization and may not represent a complete record from that organization. * Be aware that medications may not be up to date on this document. Alwaysverify current medications with the patient. Cyanocobalamin (VITAMIN B 12 PO) Active multivitamin daily (THERAGRAN) tablet Take 1 (one) tablet by mouth daily with food Active vilazodone (VIIBRYD) 20 MG tablet Take 10 mg by mouth daily with breakfast Active Insulin Pen Needle 32G X 4 MM MISCIndications: Gestational diabetes mellitus (GDM), antepartum, gestational diabetes method of control unspecified (HCC) Use 1 Each once daily 100 Each 1 3 Active Additional Information Patient not taking.Reported on 07/21/2022 Glucagon (Baqsimi One Pack) 3 MG/DOSE POWD [place] 3 mg into the nose as needed For use only if unable to treat low blood sugar by mouth. 1 Each 1 3 Active Additional Information Patient not taking.Reported on 07/21/2022 folic acid (Folvite) 1 MG tablet 1 tablet Orally Once a day for 30 day(s) Active Vit-Fe Fumarate-FA ( Vitamins) 28-0.8 MG TABS Take 1 (one) tablet by mouth once daily 2 Active ferrous gluconate 324 (38 Fe) MG tablet Take 1 (one) tablet by mouth once daily Active famotidine (Pepcid) 20 MG tablet Take 1 (one) tablet by mouth once daily 2 Active doxylamine (Unisom) 25 MG tablet Take 1 (one) tablet by mouth nightly as needed for Insomnia Active ascorbic acid (Vitamin C) 500 MG tablet Take 1 (one) tablet by mouth once daily Active pyridoxine (Vitamin B-6) 25 MG tabletIndication s:Nausea and/or Vomiting in Take 2 (two) tablets by mouth once daily Reasons: Nausea and Vomiting in Active Active Problems Problem Noted Date Diagnosed Date Second 07/21/2022 Attention deficit hyperactivity disorder (ADHD) 07/21/2022 Gestational diabetes mellitus (GDM), antepartum 07/21/2022 Anxiety and depression 07/21/2022 Prolactin deficiency 07/21/2022 Social History Tobacco Use Types Packs/Day Years Used Date Smoking Tobacco: Former Cigarettes Smokeless Tobacco: Never Alcohol Use Standard Drinks/Week Comments Yes 0 (1 standard drink = 0.6 oz pur e alcohol) social drinker AUDIT-C Answer Date Recorded Q1: How often do you have a drink containing alc ohol? 2-4 times a month 10/10/2021 Q2: How many drinks containi ng alcohol do you have on a typical day when you are drinking? 3 or 4 10/10/2021 Q3: How often do you have si x or more drinks on one occasion? Monthly 10/10/2021 Comments No Sex and Gender Information Value Date Recorded Sex Assigned at Not on file Legal Sex Female 11:50 PM INFORMATION TECHNOLOGY DATA ANALYST Gender Identity Not on file Sexual Orientation Not on file Last Filed Vital Signs Vital Sign Reading Time Taken Comments Blood Pressure 115/77 08/25/2022 9:52 AM CDT Pulse 78 08/25/2022 9:52 AM CDT Temperature 37.2 C (99 F) 10/10/2021 4:18 PM CDT Respiratory Rate 18 08/14/2022 8:16 AM CDT Oxygen Saturation 99% 02/11/2017 5:43 PM CDT Inhaled Oxygen Concentration - - Weight 72.1 kg (159 lb) 08/11/2022 8:48 AM CDT Height 162.6 cm (5' 4 ) 10/10/2021 4:18 PM CDT Body Mass Index 27.29 10/10/2021 4:18 PM CDT Plan of Treatment Health Maintenance Due Date Last Done Comments PAP SMEAR 1988 HIV SCREENING 07/29/2003 HEPATITIS C SCREENING 07/24/2006 DTAP/TDAP/TD VACCINES (1 - Tdap) 07/29/2007 HEPATITIS B VACCINE (1 of 3 - 19+ 3-dose series) 07/29/2007 COVID-19 VACCINE (3 - 2023-2 5 season) 2024 08/15/2020, 07/18/2020 DEPRESSION SCREENING 05/10/2024 INFLUENZA VACCINE (Season Ended) 2025 02/26/2016 ZOSTER VACCINE (1 of 2) 2038 HIB VACCINE Aged Out No longer eligi ble based on patient's age to complete this topic HPV VACCINE Aged Out No longer eligi ble based on patient's age to complete this topic MENINGOCOCCAL (Group B) VACCINE SHARED DECISION-MAKING Aged Out No longer eligible based on patient's age to complete this topic MENINGOCOCCAL GROUPS A/C/Y/W VACCINE Aged Out No longer eligible b ased on patient's age to complete this topic PNEUMOCOCCAL VACCINE Aged Out No long er eligible based on patient's age to complete this topic Insurance [facility] Address: [address] [place] [address] [facility] Care Teams In Home Sales Consultant Relationship Specialty Start Date End Date Laura Patel, BRAILLE PROOFREADER-HEALTH AND SOCIAL CARE TEACHER PCP - General Nurse Practitioner 05/21/17
[2024-09-06 10:41] LABS: Basophils Percent Auto 0.2 % (0.2-1.2); Eosinophils Percent Auto 0.5 % (0-4.4); Hematocrit 40.6 % (37.0-47.0); Hemoglobin 12.6 g/dL (12.0-15.0); Immature Granulocyte Absolute 0.01 K/mm3 (0.00-0.031); Immature Granulocyte Percent A 0.1 % (0-0.5); Lymphocytes Absolute Auto 1.96 K/mm3 (0.9-3.2); Lymphocytes Percent Auto 22.3 % (18.3-44.2); Mean Corpuscular Hemoglobin 28.6 pg (26-34); Mean Corpuscular Volume 92.3 fl (80-100); Mean Platelet Volume 9.1 fl (7.4-10.4); Monocytes Absolute Auto 0.5 K/mm3 (0.1-0.6); Monocytes Percent Auto 5.5 % (2.6-8.5); Neutrophils Absolute Auto 6.3 K/mm3 (1.3-6.7); Neutrophils Percent Auto 71.4 % (45.5-73.1); Platelet Count Result 348 k/mm3 (150-375); Red Cell Distribution Width 14.6 % (11.5-14.5); White Blood Count 8.8 K/mm3 (4.5-10.0)
[2024-09-06 10:56] LABS: Glucose 1 Hour PP 50gm Dose 146 mg/dL
[2024-09-06 11:27] LABS: Syphilis IgG/IgM Antibody Negative (Negative)
[2024-09-06 11:32] LABS: Hepatitis B Surface Antigen Negative (Negative); Rubella IgG Antibody 23.4 IU/ML
[2024-09-07 09:09] LABS: CMV IgG Antibody <0.60 U/mL
== END 2024-09-06 09:23 | disposition home or self-care (01) ==
LOC: ANHLAB 09:25
PROVIDERS: Visit Provider Obstetrics & Gynecology
DX: Z34.90 Encounter for supervision of normal pregnancy, unspecified, unspecified trimester (principal); Z3A.00 Weeks of gestation of pregnancy not specified
CPT/HCPCS: 36415; 82947; 84702; 85025; 86593; 86644; 86747; 86762; 86787; 86850; 86900; 86901; 87086; 87340

== ENCOUNTER 2025-01-09 09:09 | Outpatient (CLI) | payer BC, SELFPAY ==
--- OUTSIDE RECORDS SUMMARY | 2025-01-09 09:21 | XMS_ITS | Patient Health Record ---
Author Organization [facility] Address [address] [place] [address] Care Team Providers Care Center Lead Consultant Name Role Phone Zenaida Mandel Primary Care [...] 1 MG 1 tablet Orally Once a day; Duration: 30 day(s) Active risperiDONE 0.5 MG 1 tablet in the even ing Orally Once a day Active traZODone HCl 100 MG 1 tablet at bedtime Orally Once a day; Duration: 30 day(s) Activ e Viibryd 10 MG 1 tablet with food O rally Once a day; Duration: 30 day(s) Activ e Adderall 10 MG 1 tablet Orally Twice a day Active Social History Tobacco Use: Social History Observation Description Date Details (start date - stop date) Never Smoker NA - NA Dont use, Tobacco Use/Smoking Question Answer Notes Are you a nonsmoker Problems Problem Type SNOMED Code ICD Code Onset Dates Problem Status W/U Status Risk Notes Problem Anxiety (69420245) Anxiety (F41.9) Active confirmed Problem ADHD (attention deficit hyperactivity disorder) (F90.9) Active confirmed Plan Of Treatment No Information Insurance Providers Payer Name Payer Address Payer Phone Subscriber Number Group Number Insured Name Patient Relationship to Insured Coverage Start Date Coverage End Date [facility] [address] [place] [address] [id number] Shyanne Fisher Self - patient is the insured 1 Medical (General) History Surgical History Surgery Date(Month/Year) tonsillectomy wisdom tooth removed Hospitalization History Reason Date(Month/Year) mental health 2017
--- OUTSIDE RECORDS SUMMARY | 2025-01-09 09:21 | XMS_ITS | Clinical Summary ---
Author Organization [facility] Address [address] [place] [address] Care Team Providers Care Travel Assistant Name Role Phone Laura Patel TOP CLEANER Primary Care Provider [phone] Family History Medical History Relation Comments No [...] of 3 - 19+ 3-dose series) 07/29/2007 HPV Vaccines (1 - 3-dose SCD M series) 07/29/2015 Cervical Cancer Screening Pa p with HPV Testing (Age 30 to 64) Every 5 Years 2018 Cervical Cancer Screening with HPV 2018 COVID-19 Vaccine (2023-2 5 season) 2024 07/18/2020 Meningococcal B Vaccine Aged Out No l [...] patient's age to complete this topic Insurance [facility] Care Teams Travel Assistant Relationship Specialty Start Date End Date Laura Patel FNP [address] [place] [address] [address] [place] [address] PCP - General NURSE PRACTITIONER 11/27/19
[2025-01-09 10:36] LABS: Hematocrit 33.5 % (37.0-47.0); Hemoglobin 10.6 g/dL (12.0-15.0); Immature Granulocyte Percent A 0.5 % (0-0.5); Lymphocytes Absolute Auto 1.47 K/mm3 (0.9-3.2); Mean Corpuscular HGB Conc 31.6 g/dl (32-36); Mean Corpuscular Hemoglobin 29.4 pg (26-34); Mean Corpuscular Volume 92.8 fl (80-100); Nucleated Red Blood Cells Absolute Auto 0.000 K/mm3 (0.0-0.012); Nucleated Red Blood Cells Perc 0.0 % (0.0-0.2); Platelet Count Result 297 k/mm3 (150-375); Red Blood Count 3.61 M/mm3 (4.2-5.4); White Blood Count 9.9 K/mm3 (4.5-10.0)
[2025-01-09 10:57] LABS: Alanine Aminotransferase 17 U/L (6-35); Albumin Level 3.5 g/dL (3.5-5.1); Alkaline Phosphatase 57 U/L (38-126); Anion Gap 5 mmol/L (4-12); Aspartate Amino Transferase 27 U/L (14-36); Bilirubin,Total 0.4 mg/dL (0.2-1.3); Blood Urea Nitrogen 5 mg/dL (7-17); Calcium 8.9 mg/dL (8.4-10.2); Carbon Dioxide 25 mmol/L (22-30); Chloride 105 mmol/L (98-107); Estimated Glomerular Filt Rate > 60; Glucose 161 mg/dL (65-110); Glucose 1 Hour PP 50gm Dose 159 mg/dL; Potassium 3.3 mmol/L (3.4-5.0); Sodium 135 mmol/L (137-145); Total Protein 6.3 g/dL (6.3-8.2)
[2025-01-09 11:25] LABS: Syphilis IgG/IgM Antibody Non-Reactive (Nonreactive)
[2025-01-09 11:28] LABS: Thyroid Stimulating Hormone Reflex 0.645 uIU/mL (0.465-4.68)
[2025-01-09 11:38] LABS: HIV 1/2 Ab P24 Ag Result Negative (Negative)
== END 2025-01-09 09:10 | disposition home or self-care (01) ==
LOC: ANHLAB 09:11
PROVIDERS: Visit Provider Obstetrics & Gynecology
DX: Z34.90 Encounter for supervision of normal pregnancy, unspecified, unspecified trimester (principal); Z3A.00 Weeks of gestation of pregnancy not specified
CPT/HCPCS: 36415; 80053; 82947; 84443; 85025; 86593; 86703; G0432

== ENCOUNTER 2025-01-30 07:14 | Outpatient (CLI) | payer BC, SELFPAY ==
[2025-01-30 08:04] LABS: Glucose Fasting Gestational 92 mg/dL (>/=95)
[2025-01-30 10:27] LABS: Glucose 1 Hour Gest 199 mg/dL (>/=180)
[2025-01-30 10:49] LABS: Glucose 2 Hour Gest 167 mg/dL (>/= 155)
[2025-01-30 12:08] LABS: Glucose 3 Hour Gest 61 mg/dL (>/=140)
== END 2025-01-30 07:15 | disposition home or self-care (01) ==
LOC: ANHLAB 07:15
PROVIDERS: Visit Provider Obstetrics & Gynecology
DX: Z34.90 Encounter for supervision of normal pregnancy, unspecified, unspecified trimester (principal)
CPT/HCPCS: 36415; 82951; 82952

== ENCOUNTER 2025-03-28 05:56 | Inpatient (IN) | payer BC, SELFPAY ==
[2025-03-28] VITALS (154 sets, daily range): BP systolic 79–143; BP diastolic 44–89; PULSE 78–116; RESP 16–18; TEMP 36.8–37; O2SAT 92–100; BMI 29.5
--- NOTE | 2025-03-28 05:56 | LDADM ---
This patient, Shyanne Fisher, was admitted to Labor/Delivery/Recovery 107 on 03/28/25 at 05:56. Plans for labor, pain management and were discussed with patient. Patient/family oriented to hospital policies and general routines including ID bracelet, bed and alarms, visiting hours, pain management, procedures, bathroom and other care routines, personal items, smoking policy, room service/diet and guest tray routines, security routines, and visiting hours. Patient/Family are encouraged to report perceived risks to care and to ask questions if they do not understand what they are told or what they should do. See OBIX for further documentation.
--- OUTSIDE RECORDS SUMMARY | 2025-03-28 06:03 | XMS_ITS | Patient Health Record ---
Author Organization [facility] Address [address] [place] [address] Care Team Providers Care Stapling Machine Operator Name Role Phone Zenaida Mandel Primary Care [...] Status W/U Status Risk Notes Problem Anxiety (57065270) Anxiety (F41.9) Active confirmed Problem Attention deficit hyperactivity disorder (150773949) ADHD (attention deficit hyperactivity disorder) (F90.9) Active confirmed Plan Of Treatment No Information Insurance Providers Payer Name Payer Address Payer Phone Subscriber Number Group Number Insured Name Patient Relationship to Insured Coverage Start Date Coverage End Date [facility] [address] [place] [address] [phone] [id number] Shyanne Fisher Self - patient is the insured 1 Medical (General) History Surgical History Surgery Date(Month/Year) tonsillectomy wisdom tooth removed Hospitalization History Reason Date(Month/Year) mental health 2017
--- OUTSIDE RECORDS SUMMARY | 2025-03-28 06:03 | XMS_ITS | Clinical Summary ---
Author Organization [facility] Address [address] [place] [address] Care Team Providers Care Oracle Reports Developer Name Role Phone Jorge Laura Oconnor APRN-MEDICAL STAFF SERVICES COORDINATOR Primary Care Provider Source Comments [facility],non-owned Affiliates and Associated Physician Practices is amultiple site organization consisting of ambulatory clinics and hospital sitesin [place], [place], [place] and [place]. This disclosure is being madepursuant to the Care Everywhere program and may not contain all information available regarding this patient. Last updated 18.[facility] Allergies Active Allergy Reactions Criticality Noted [...] Glucagon (Baqsimi One Pack) 3 MG/DOSE POWD [place] 3 mg into the nose as needed [...] Anxiety and depression 07/21/2022 Prolactin deficiency 07/21/2022 Estimated Date of Delivery Comme nts Yes 04/11/2025 Based on last me nstrual period of 07/05/2024 Social History Tobacco Use Types Packs/Day Years Used Date Smoking Tobacco: Former Cigarettes Smokeless Tobacco: Never Tobacco Cessation:Counseling Given: Not Answered Alcohol Use Standard Drinks/Week Comments Yes 0 [...] more drinks on one occasion? 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 CREATIVE OFFICER Gender Identity Not on file Sexual Orientation [...] 8:48 AM CDT Height 162.6 cm (5' 4) 10/10/2021 4:18 PM CDT Body Mass Index 27.29 10/10/2021 4:18 PM CDT Plan of Treatment Health Maintenance Due Date Last Done Comments HIV SCREENING 07/29/2003 HEPATITIS C SCREENING 07/24/2006 DTAP/TDAP/TD VACCINES (1 - Tdap) 07/29/2007 HEPATITIS B VACCINE (1 of 3 - 19+ 3-dose series) 07/29/2007 Cervical Cancer Screening 2009 PAP SMEAR 2009 HPV VACCINE (1 - 3-dose SCDM series) 07/29/2015 PAP with HPV 2018 DEPRESSION SCREENING 05/10/2024 OB-ONE HOUR GLUCOSE 01/03/2025 COVID-19 VACCINE (3 - 2024-2 6 season) 2025 08/15/2020, 07/18/2020 INFLUENZA VACCINE (#1) 2025 02/26/2016 OB-TDAP CURRENT 01/10/2025 OB-RHOGAM INJECTION 01/17/2025 OB-GROUP B STREP SCREEN 03/07/2025 ZOSTER VACCINE (1 of 2) 2038 HIB [...] on patient's age to complete this topic Respiratory Syncytial Virus (RSV) Vaccine Pt: or over 60 yrs (No Doses Required) Completed Insurance [employer] Care Teams Oracle Reports Developer Relationship Specialty Start Date End Date Laura Patel, HOT PUNCH PRESS OPERATOR-MEDICAL STAFF SERVICES COORDINATOR PCP - General Nurse Practitioner 05/21/17
--- NOTE | 2025-03-28 06:28 | WPDANESEPP ---
Anes - Eval Pre Procedure Procedure: Labor epidural Date/Time: 03/28/25 06:28 Preop Diagnosis: Abdominal pain with contractions Pre Op Diagnosis: IOL Patient Data Age: 34 Gender: F Height: Weight: Allergies Allergy/AdvReac Type Severity Reaction Status Date / Time codeine Allergy Intermediate hives Verified 03/28/25 06:27 Sulfa (Sulfonamide Allergy Intermediate unknown as Verified 03/28/25 06:27 Antibiotics) a baby Home Medications ?Medication ?Instructions ?Recorded ?Confirmed ?Type prenat.vits,álvaro,otw-pcyl-fesym 1 tablet PO DAILY 03/18/22 03/27/25 History vilazodone 20 mg tablet (Viibryd) 20 mg PO DAILY 03/18/22 03/27/25 History folic acid 0.8 mg capsule 0.8 mg PO DAILY 08/31/24 03/27/25 History doxylamine succinate 25 mg tablet 25 mg PO QHS PRN sleep 09/26/24 03/27/25 History (Unisom (doxylamine)) pyridoxine (vitamin B6) 25 mg 25 mg PO DAILY 09/26/24 03/27/25 History tablet (Vitamin B-6) aspirin 81 mg tablet,delayed 81 mg PO DAILY 10/24/24 03/27/25 History release (Adult Low Dose Aspirin) metoclopramide HCl 10 mg tablet 10 mg PO Q6H PRN nausea and 01/05/25 03/24/25 Rx (Reglan) vomiting #40 tabs ferrous sulfate 325 mg (65 mg 325 mg PO .QOD 01/23/25 03/27/25 History iron) tablet blood-glucose meter (OneTouch #1 ea 01/30/25 03/20/25 Rx Verio Flex Meter) lancets 30 gauge (OneTouch Delica #100 ea 01/30/25 03/20/25 Rx Plus Lancet) blood sugar diagnostic (OneTouch #100 ea 02/27/25 03/20/25 Rx Verio test strips) glyburide 2.5 mg tablet 2.5 mg PO DAILY #30 tabs 03/06/25 03/27/25 Rx : gestational age HCG: positive Patient hx anesthesia problems: none Family hx anesthesia problems: none Results Review: All pre-operative results and documents have been reviewed as part of the pre-operative evaluation. [facility] Past Medical History Medical History and not yet delivered Gestational diabetes Blood glucose abnormal Anxiety and depression Missed 07/2021 Prolactin deficiency ADHD Family History Family History Father Hypertension Testicle cancer Skin cancer Mother Hypertension Skin cancer Sibling Skin cancer Club foot of both lower extremities Grandparent Bipolar 1 disorder, manic, mild Alzheimer disease Social History Social History Smoking status: Former smoker Tobacco type: e-cigarettes/vaping Second hand tobacco smoke exposure: No Alcohol intake: never Substance use: never Substance use type: does not use Do You Feel Safe in your Home?: Yes Lack of Transportation: No Lack of Food: Never True Current Housing: I Have Housing Concerned About Future Housing: No Difficulty Paying Gas/Electric Bills: No Difficulty Paying for Meds: No Currently Unemployed: No Education: Associate Degree Difficulty w/ Childcare or Family Care: No Living arrangements: with family Additional living arrangements comments: Occupation/Education: occupation 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
[2025-03-28 06:34] LABS: Hematocrit 35.8 % (37.0-47.0); Hemoglobin 11.8 g/dL (12.0-15.0); Immature Granulocyte Percent A 0.3 % (0-0.5); Lymphocytes Absolute Auto 1.52 K/mm3 (0.9-3.2); Mean Corpuscular HGB Conc 33.0 g/dl (32-36); Mean Corpuscular Hemoglobin 30.4 pg (26-34); Mean Corpuscular Volume 92.3 fl (80-100); Nucleated Red Blood Cells Absolute Auto 0.000 K/mm3 (0.0-0.012); Nucleated Red Blood Cells Perc 0.0 % (0.0-0.2); Platelet Count Result 278 k/mm3 (150-375); Red Blood Count 3.88 M/mm3 (4.2-5.4); White Blood Count 9.9 K/mm3 (4.5-10.0)
[2025-03-28 07:24] LABS: Syphilis IgG/IgM Antibody Non-Reactive (Nonreactive)
--- NOTE | 2025-03-28 08:22 | PM.IMHP ---
H&P: HPI History of Present Illness Date/Time: 03/28/25 08:22 Chief Complaint: induction of labor Narrative: Shyanne is a 34yo @ 38.0wks who presents for medical induction of labor due to A2GDM. She has been undergoing testing routinely, which has been reassuring. She has had regular care. She reports good movement. Irregular contractions. No VB or LOF. Her is complicated by: 1 AMA...GC/MFM/LD ASA 2. Hx. GDM...early test (normal) 3. A2GDM...growth scans/ANT/accuchecks-- glyburide 4. Anxiety/depression on Viibryd Review of Systems Constitutional: Constitutional: Denies chills, Denies fever(s) and Denies headache(s) Eyes: Eyes: Denies change in vision ENT: Denies headache(s) Cardiovascular: Cardiovascular: Denies chest pain and Denies dyspnea Respiratory: Respiratory: Denies dyspnea Genitourinary: Genitourinary: Denies abnormal vaginal bleeding and Denies vaginal discharge Neurologic: Denies headache(s) Psychiatric: Psychiatric: Denies anxiety and Denies depression [facility] Past Medical History Medical History and not yet delivered Gestational diabetes Blood glucose abnormal Anxiety and depression Missed 07/2021 Prolactin deficiency ADHD Family History Family History Father Hypertension Testicle cancer Skin cancer Mother Hypertension Skin cancer Sibling Skin cancer Club foot of both lower extremities Grandparent Bipolar 1 disorder, manic, mild Alzheimer disease Social History Social History Smoking status: Never smoker Tobacco type: e-cigarettes/vaping Second hand tobacco smoke exposure: No Alcohol intake: never Substance use: never Substance use type: does not use Do You Feel Safe in your Home?: Yes Lack of Transportation: No Lack of Food: Never True Current Housing: I Have Housing Concerned About Future Housing: No Difficulty Paying Gas/Electric Bills: No Difficulty Paying for Meds: No Currently Unemployed: No Education: Associate Degree Difficulty w/ Childcare or Family Care: No Living arrangements: with family Additional living arrangements comments: Occupation/Education: occupation 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 Gender identity (if verbalized by the patient): Female Sexual Orientation (if Verbalized by the Patient): Straight or Heterosexual Spiritual care concerns: No Meds Home Medications and Allergies Home Medications ?Medication ?Instructions ?Recorded ?Confirmed ?Type prenat.vits,álvaro,tok-kxng-aypoi 1 tablet PO DAILY 03/18/22 03/28/25 History vilazodone 20 mg tablet (Viibryd) 20 mg PO DAILY 03/18/22 03/28/25 History folic acid 0.8 mg capsule 0.8 mg PO DAILY 08/31/24 03/28/25 History doxylamine succinate 25 mg tablet 25 mg PO QHS PRN sleep 09/26/24 03/28/25 History (Unisom (doxylamine)) pyridoxine (vitamin B6) 25 mg 25 mg PO DAILY 09/26/24 03/28/25 History tablet (Vitamin B-6) aspirin 81 mg tablet,delayed 81 mg PO DAILY 10/24/24 03/28/25 History release (Adult Low Dose Aspirin) blood-glucose meter (OneTouch #1 ea 01/30/25 03/28/25 Rx Verio Flex Meter) lancets 30 gauge (OneTouch Delica #100 ea 01/30/25 03/28/25 Rx Plus Lancet) blood sugar diagnostic (OneTouch #100 ea 02/27/25 03/28/25 Rx Verio test strips) glyburide 2.5 mg tablet 2.5 mg PO DAILY #30 tabs 03/06/25 03/28/25 Rx Allergies Allergy/AdvReac Type Severity Reaction Status Date / Time codeine Allergy Intermediate hives Verified 03/28/25 06:27 Sulfa (Sulfonamide Allergy Intermediate unknown as Verified 03/28/25 06:27 Antibiotics) a baby Vital Signs Vital Signs - 24 hr 03/28/25 07:01 03/28/25 07:16 03/28/25 07:18 Temperature Pulse Rate 94 93 Respiratory Rate Blood Pressure 121/71 117/57 L Pulse Oximetry 98 03/28/25 07:20 03/28/25 07:24 03/28/25 07:25 Temperature 98.6 F Pulse Rate 98 Respiratory Rate 16 Blood Pressure 115/76 Pulse Oximetry 97 94 03/28/25 07:30 03/28/25 07:31 03/28/25 07:32 Temperature Pulse Rate 98 Respiratory Rate Blood Pressure 117/76 Pulse Oximetry 95 96 03/28/25 07:37 03/28/25 07:42 03/28/25 07:47 Temperature Pulse Rate Respiratory Rate Blood Pressure Pulse Oximetry 97 94 93 03/28/25 07:52 03/28/25 07:57 03/28/25 08:01 Temperature Pulse Rate 85 Respiratory Rate Blood Pressure 112/75 Pulse Oximetry 92 93 03/28/25 08:02 03/28/25 08:07 03/28/25 08:12 Temperature Pulse Rate Respiratory Rate Blood Pressure Pulse Oximetry 94 94 95 03/28/25 08:17 Temperature Pulse Rate Respiratory Rate Blood Pressure Pulse Oximetry 94 Exam Const: General: cooperative, healthy appearing, comfortable and no acute distress Orientation/consciousness: patient oriented x3 Resp: Effort & Inspection: normal respiratory effort Cardio: Rate: regular rate GI: GI Palp: No abdominal tenderness : Other: FHT's: 120's/ mod bree/ + accels/ no decels - cat 1 TOCO: ctxs q2-4min Cervix: 1.5/60/-2 Membranes: intact Presentation: cephalic Skin: General skin exam: normal color Neuro: General: patient oriented x3 Extrem: General: normal to inspection Psych: Appearance: grossly normal Affect: normal affect Attitude: cooperative H&P: Results Labs Labs: Short CBC 03/28/25 Range/Units 06:10 WBC 9.9 (4.5-10.0) K/mm3 Hgb 11.8 L (12.0-15.0) g/dL Hct 35.8 L (37.0-47.0) % Plt Count 278 (150-375) k/mm3 Assessment and Plan Assessment and plan (1) Encounter for induction of labor: Code(s): Z34.90 - Encounter for supervision of normal , unspecified, unspecified trimester Status: Acute (2) Gestational diabetes mellitus (GDM) affecting : Code(s): O24.419 - Gestational diabetes mellitus in , unspecified control Status: Acute Plan - Admitted for induction of labor; risks and benefits discussed - s/p cytotec 50mcg once - Plan for AROM after epidural, will then start low dose pitocin per protocol - Continuous monitoring - GBS neg - Anesthesia consult for epidural PRN pain - BS q4h in latent labor, q2h in active labor
[2025-03-28] MEDS: LACTATED RINGERS 1,000 ML 125 ML IV CONT ×2 (09:48→10:48)
[2025-03-28] MEDS: OXYTOCIN 30 UNITS/NS 500 ML 30 UNITS/500 ML BAG IV CONT (11:40)
--- NOTE | 2025-03-28 12:49 | PM.OBPNLAB ---
Pain Control Date/time seen: 03/28/25 12:49 Pain control: epidural Pelvic Exam Dilation (cm): 4 Effacement (%): 50 station: -2 Amniotic membrane status: Ruptured (AROM, clear 1242) Contractions Monitor mode: External Contraction frequency: 2 (-3) Contraction pattern: Regular Status status: Category l Assessment and Plan Pitocin rate (mU/min): 2 Assessment: induction ongoing Plan: continuous present management Comments: BS stable at 84
[2025-03-28] MEDS: OXYTOCIN 30 UNITS/NS 500 ML 30 UNITS/500 ML BAG 125 UNITS IV CONT (14:32)
--- NOTE | 2025-03-28 14:34 | PM.OBPRVD ---
OB - Vaginal Delivery Note Procedure Delivery date: 03/28/25 Events: Gestational Diabetes Induction method: Per Misoprostol Protocol (50mcg x1) Delivery augmentation: Rupture of Membranes and Pitocin Delivery monitor: External FHT and External Uterine Route of delivery: Episiotomy description: None Laceration Description: Periurethral (central) Delivery repair: vicryl Specimen: Yes (placenta) Quantitative Blood Loss (ml): 100 Anesthesia type: Epidural Disposition: Floor Complications: No immediate complications Baby Date of : 03/28/25 Time of : 14:00 Gestational Age by Date: 38 (.0) Infant gender: Female presentation: vertex Placenta delivery description: Expressed Cord Vessel Description: 3 Vessels score one minute: 9 score five minutes: 9 Narrative: Shyanne rapidly progressed from 4 cm to complete dilation after rupture of membranes. She had strong desire to push. She pushed 1 contraction and delivered the head over intact perineum. Nuchal cord was noted but loose and easily reduced. She easily delivered the 's shoulders and body without complication. The infant was immediately placed skin to skin had spontaneous cry. Delayed cord clamping was performed. The umbilical cord was then doubly clamped and cut. Segment of the cord was collected for cord gases. The remaining cord blood was collected for typing. With Pitocin running and gentle downward traction on the cord, the placenta delivered without complication. Bimanual massage was performed and good uterine tone with minimal bleeding was noted. She was examined and a small periurethral laceration was identified but was noted to be bleeding. The laceration was repaired in a running interlocking fashion using a 3-0 Vicryl. The laceration was reapproximated well and good hemostasis was noted. Her uterus remained firm with minimal bleeding. Sponge, lap, instrument, and needle counts were correct at the end of the procedure. Mom and baby were left bonding in the birthing suite in stable condition.
--- NOTE | 2025-03-28 14:38 | S_PTH ---
PATIENT: Shyanne Fisher LOC: [facility] U#:[id number] AGE/SX: 34/F ROOM: 287 RE03/28/[address]: Ramon Stephenson MD : [id number] BED: 00 DIS: 03/29/2025 SPEC #: [id number] RECD: 03/29/25 08:30 STATUS: HEDY REDaniel #: [id number] RENETTA: 03/28/25 14:[address]: Cindi Spivey DEPT: [facility] Surgical RECD BY: Yulisa Martinez ENTERED: 03/29/25 08:31 SP TYPE: Surgical OTHR DR: UNKNOWN,DOCTOR Tissues: A - Placenta Procedures: Hematoxylin and Eosin Stain Gross and Microscopic Level 5
[2025-03-28] MEDS: IBUPROFEN 600 MG TABLET PO (18:40)
[2025-03-29] MEDS: IBUPROFEN 600 MG TABLET PO ×2 (01:35→09:08)
[2025-03-29 03:00] VITALS: BP 124/79; PULSE 56; RESP 17; TEMP 36.3; O2SAT 99
[2025-03-29] MEDS: ACETAMINOPHEN 325 MG TABLET 650 MG PO ×2 (03:08→13:34)
[2025-03-29 04:36] LABS: Hematocrit 35.7 % (37.0-47.0); Hemoglobin 11.8 g/dL (12.0-15.0); Mean Corpuscular HGB Conc 33.1 g/dl (32-36); Mean Corpuscular Hemoglobin 30.6 pg (26-34); Mean Corpuscular Volume 92.5 fl (80-100); Platelet Count Result 257 k/mm3 (150-375); Red Blood Count 3.86 M/mm3 (4.2-5.4); White Blood Count 10.3 K/mm3 (4.5-10.0)
[2025-03-29 07:40] VITALS: BP 128/83; PULSE 75; RESP 16; TEMP 36.7; O2SAT 96
[2025-03-29] MEDS: MULTIVIT/MIN/PREN/FOL AC/IRON TABLET 1 TAB PO (09:08)
[2025-03-29] MEDS: DOCUSATE SODIUM 100 MG CAPSULE PO (09:08)
--- NOTE | 2025-03-29 10:23 | PHAR ---
The patient's home med of Vilazodone 20mg has been verified.
[2025-03-29 12:00] VITALS: BP 135/82; PULSE 86; RESP 16; TEMP 36.7; O2SAT 98
--- NOTE | 2025-03-29 13:47 | PC.NURSE ---
0854 Introductions were made, then consulted with patient to assess needs related to . Discussed with mother her?plans to feed?her infant and the?experience so far. Per mother infant is latching optimally without pain and she has has felt many long draws and heard swallow. Mother is currently taking medication for depression, her primary physician and 's surgery teacher are aware and ok with her . Per mother she has history of increased prolactin and milk supply. She has her own Spectra breast pump at home and is requesting to be sized for the correct flange size before discharge, she was only able to breast her first for a month or so and then only pumped and bottle fed. Resources provided for inpatient and outpatient services with the feeding sheet, mom/baby guide and name written on the communication board. Mother voiced understanding of information and will call if there is a request for assistance. Reported to the Primary RN. 1024 Mother called out and is ready for CLC RN to do her nipple measurement. Instructions given on cleaning, care, usage, that there should be no pain, pumping schedule for milk production, collection, and storage of human milk. Patient was assessed for correct placement, flange size (nipples measured 26-27mm), to pump for comfort and nipple stretching/stimulation for adequate milk production every 3 hours (8 times in 24 hours) 1-2 times at night. Parents are encouraged to record the pumping schedule on the feeding sheet.?Mother voiced understanding of the education shared along with mom/baby guide and the pump measurement, flange fit handout for additional resource information. Reported to the Primary RN. 1330 Mother is feeding appropriately for growth of infant and understands stimulating infant to eat if needed. has had appropriate feedings in the last 24 hours meets the outcomes for weight, output, blood sugar and jaundice at this time. Reinforced understanding of milk production, transition of milk, signs of adequate intake, transition of stool, prevention/relief of engorgement, plugged ducts, mastitis, responsive watching for feeding cues, the different methods of stimulating infant to breastfeed 1-3 hours after the start of the last feeding, community resources, and when to call a provider using the resource of the feeding sheet along with the mom and baby guide. Mother voiced understanding of the information shared, is confident to continue effectively her at home, when to call for assistance, denies any additional assistance or education at this time. Reported to the Primary RN.
[2025-03-31 11:31] VITALS: BP 125/81; PULSE 89; RESP 18; TEMP 37.2; O2SAT 100
--- NOTE | 2025-04-19 09:27 | P.DS_ITS ---
DS: Admitting Diagnosis Discharge Date 03/29/25 Admitting Diagnosis intrauterine at term Gestational diabetes DS: Discharge Diagnosis Discharge Diagnosis (1) Normal vaginal delivery: Code(s): O80 - Encounter for full-term uncomplicated delivery Status: Acute OB - DS: Summary OB Procedures : None OB Procedures Intrapartum: Spontaneous Vag Delivery OB Procedures: : None Peripartum Data Laceration Description: Periurethral (central) Episiotomy description: None Status at Discharge Functional status at discharge: independent ambulation Overall status at discharge: patient is back to baseline Time Spent with Patient Time attestation: Total time spent providing and/or coordinating discharge services: Time spent: Less than 30 minutes Exam Const: General: comfortable and no acute distress Resp: Effort & Inspection: normal respiratory effort Auscultation: clear to auscultation bilaterally Cardio: Rate: regular rate GI: GI Palp: Yes Soft to palpation Auscultation: normal bowel sounds Other: Fundus firm below umbilicus Psych: Appearance: grossly normal Mental Status: mental status grossly normal Affect: normal affect DS: Data Data Completed and Pending Completed studies during hospitalization: Pending at discharge 03/28/25 14:38 Surgical [PTH] Routine Discharge Plan Discharge Consulting providers: Sebastian Worley Jr. Discharging Clinician: Ramon Stephenson Patient Disposition: Home Activity: as tolerated and pelvic rest Diet: as tolerated Discharge Instructions: Education: Mom and Baby Guide Given to: Mother Follow-Up: Call your delivering provider's office for an appointment to be seen in: 4 Weeks Mom and baby should come to the [facility] for the follow-up appointment. Appointment Date/Time: March 31, 2025 at 11:00 am What to expect at your follow-up visit: Physical Assessment Call [phone] if you are unable to keep your appointment time. BREAST CARE: * Wear a snug supportive bra. * For engorgement discomfort: Breast Feeding: * Apply warm moist washcloths * Express milk as needed to relieve engorgement * Wear loose clothing * For sore nipples: * Identify correct latch-on * Apply warm moist washcloths before and after nursing * Air dry nipples after nursing * May apply Lansinoh cream to nipples PERINEAL CARE: * Until bleeding stops, use your olu bottle after urinating * Change your pad frequently throughout the day * You may take sitz baths several times a day (fill your bathtub with warm water and soak for 20 minutes.) Do NOT bathe in the water * No tub baths until seen by your physician - You may shower ACTIVITY: * Rest as much as possible. * Do not exercise or lift anything heavier than your baby (such as laundry or other children.) * Avoid stairs or driving as much as possible. * Do not put anything into the vagina. No douching, tampons, or sexual activity until seen by physician. NOTIFY PHYSICIAN IF YOU HAVE ANY QUESTIONS OR IF ANY OF THE FOLLOWING SYMPTOMS OCCUR: * If your perineum becomes red, swollen, or more painful than what you have experienced in the hospital. * If your vaginal bleeding becomes foul smelling. * If your vaginal bleeding becomes more heavy than a period or if your bleeding changes from pink to bright red. However, you may pass an occasional walnut- sized clot once or twice for the first week . * If you experience a sharp, shooting pain in you calves. * If you discover a hard, reddened area on your breast or if you experience flu- like symptoms. DIET: * Eat regular, well-balanced meals. * Drink plenty of fluids daily. Patient Language: Wolof Stand Alone Forms: General Discharge Information Follow-up/Referrals: Ramon Stephenson MD [Physician, [employer]] Referral Note: 4 weeks Discharge Medications: Continued prenat.vits,álvaro,[id number]-[id number] Tablet 1 tablet PO DAILY vilazodone [Viibryd] 20 mg tablet 20 mg PO DAILY Rx Instructions: must administer with a meal/food pyridoxine (vitamin B6) [Vitamin B-6] 25 mg tablet 25 mg PO DAILY Discontinued aspirin [Adult Low Dose Aspirin] 81 mg tablet,delayed release (DR/EC) 81 mg PO DAILY glyburide 2.5 mg tablet 2.5 mg PO DAILY Qty: 30 0RF folic acid 0.8 mg capsule 0.8 mg PO DAILY Unisom (doxylamine) 25 mg tablet 25 mg PO QHS PRN (Reason: sleep) No Action (DME) blood-glucose meter [OneTouch Verio Flex meter] Misc See Rx Instructions .Route Qty: 1 0RF Rx Instructions: As directed (DME) lancets [OneTouch Delica Plus Lancet] 30 gauge misc See Rx Instructions .Route Qty: 100 3RF Rx Instructions: testing 4xs a day (DME) OneTouch Verio test strips Strip See Rx Instructions .Route Qty: 100 2RF Rx Instructions: Testing BS 4X daily Date of admission: 03/28/25 05:56 Primary Care Provider: UNKNOWN,DOCTOR Admitting Provider: Cindi Spivey Attending physician on admission: Ramon Stephenson Condition: Stable
== END 2025-03-29 15:35 | disposition home or self-care (01) | DRG 807 ==
LOC: ANHOB2 03-29 13:49 → ANHLDR 03-30 09:06 → ANHOB2 03-30 09:06
PROVIDERS: Admitting Provider Obstetrics & Gynecology; Visit Provider Student in an Organized Health Care Education/Training Program
DX: O24.425 Gestational diabetes mellitus in childbirth, controlled by oral hypoglycemic drugs (principal); Z37.0 Single live birth; Z3A.38 38 weeks gestation of pregnancy; O99.344 Other mental disorders complicating childbirth; F41.9 Anxiety disorder, unspecified; F32.A Depression, unspecified; O69.81X0 Labor and delivery complicated by cord around neck, without compression, not applicable or unspecified; O71.82 Other specified trauma to perineum and vulva
CPT/HCPCS: 36415; 82948; 85025; 85027; 86593; 86850; 86900; 86901; 88307; A9270; J2590; J2795; J7120